=== PATIENT | male | born 1990 | race African-American/Black ===

== ENCOUNTER 2024-09-18 16:25 | Emergency (ER) | payer OTHER, SELFPAY ==
[2024-09-18] MEDS ORDERED: Ketorolac Tromethamine 30 MG (1 mL) VIAL ONE (17:52)
[2024-09-18] MEDS ORDERED: Dexamethasone 10 MG/ML VIAL ONE (17:52)
[2024-09-18] MEDS ORDERED: Amoxicillin/Potassium Clav 875 MG TAB ONE (17:52)
== END 2024-09-18 18:40 | disposition home or self-care (01) ==
LOC: ERS 16:25
DX: K08.89 Other specified disorders of teeth and supporting structures (principal); F17.210 Nicotine dependence, cigarettes, uncomplicated
CPT/HCPCS: 96372; 99282; J1100; J1885